=== PATIENT | male | born 1930 | race Caucasian/White ===

== ENCOUNTER 2018-06-17 22:06 | Emergency (ER) | payer OTHER, MEDICARE ==
[~2018-06-17] VITALS: Ht 175.3 cm; Wt 83.0 kg
[~2018-06-17 22:06] MED LIST: AMBEREN; ASPIRIN EC81 M1; B COMPLEX1 EAC1 PO; CIPRO500 MG PO; COQ-10100 MG PO; FISHOIL; FLAGYL500 MG PO; HYTRIN 2MG CAPSU2 M1; IBUPROFEN 200200 M1; L-ARGININE1000 MG PO; LISINOPRIL10 MG; LISINOPRIL5 MG PO; MOM PO; PRAVACHOL40 MG; PRESERVISION; PRESERVISION PO; UNICOMPLEX M TA1 TA1 PO; VITAMIN D1000 UNI1 PO
[2018-06-17] MEDS ORDERED: COZAAR 25 MG TA25 M1 PO (22:28)
[2018-06-17] MEDS ORDERED: FLOMAX0.4 MG PO (22:29)
[2018-06-17] MEDS ORDERED: MEN 50 PLUS MU1 EACH PO (22:30)
[2018-06-18 00:10] VITALS: BP 140/64
== END 2018-06-18 00:45 | disposition home or self-care (01) ==
LOC: ER 22:06
DX: R07.81 Pleurodynia (principal); I10 Essential (primary) hypertension; G47.30 Sleep apnea, unspecified; I25.10 Atherosclerotic heart disease of native coronary artery without angina pectoris; E78.5 Hyperlipidemia, unspecified; Z87.891 Personal history of nicotine dependence; Z91.041 Radiographic dye allergy status; Z88.8 Allergy status to other drugs, medicaments and biological substances; Z87.442 Personal history of urinary calculi; Z98.890 Other specified postprocedural states; Z85.828 Personal history of other malignant neoplasm of skin; Z95.5 Presence of coronary angioplasty implant and graft

== ENCOUNTER 2018-07-07 02:18 | Emergency (ER) | payer OTHER, MEDICARE ==
[~2018-07-07] VITALS: Ht 175.3 cm; Wt 82.6 kg
[~2018-07-07 02:18] MED LIST changes: +COZAAR 25 MG TA25 M1 PO; +FLOMAX0.4 MG PO; +MEN 50 PLUS MU1 EACH PO
[2018-07-07 03:04] LABS: URINE CLARITY CLEAR; URINE COLOR YELLOW; URINE GLUCOSE-RANDOM* NEGATIVE (Negative); URINE PROTEIN (DIPSTICK) NEGATIVE (Negative)
[2018-07-07 03:05] LABS: URINE BILIRUBIN NEGATIVE (Negative); URINE BLOOD NEGATIVE (Negative); URINE KETONES NEGATIVE (Negative); URINE LEUKOCYTES-REFLEX NEGATIVE (Negative); URINE NITRITE-REFLEX NEGATIVE (Negative); URINE UROBILINOGEN 0.2 E.U./dl (0.2-1.0)
[2018-07-07 03:06] LABS: ABSOLUTE NEUTROPHILS 3.4 thou/uL (1.4-8.2); BASOPHILS 0.8 % (0.0-2.0); HEMATOCRIT 42.3 % (42.0-52.0); HEMOGLOBIN 14.2 gm/dL (14.0-18.0); LYMPHOCYTES 34.4 % (24.0-44.0); MCH 30.2 pg (26.0-34.0); MCHC 33.6 g/dL (28.0-37.0); MCV 89.8 fL (80.0-100.0); MONOCYTES 7.3 % (1.0-8.0); PLATELET COUNT 169 thou/uL (150-400); POLYS 55.5 % (36.0-66.0); RBC 4.71 mil/uL (4.50-6.00); RDW 13.6 % (10.5-14.5); WBC 6.1 thou/uL (4.0-11.0)
[2018-07-07 03:16] LABS: CALCIUM 9.3 mg/dL (8.5-10.1); CREATININE 1.4 mg/dL (0.7-1.3)
[2018-07-07 03:21] LABS: ALBUMIN 3.9 g/dL (3.4-5.0); TOTAL BILIRUBIN 0.7 mg/dL (<0.1-1.0); TOTAL PROTEIN 7.1 g/dL (6.4-8.2)
[2018-07-07 07:36] VITALS: BP 126/58
--- NOTE | 2018-07-07 07:37 | EKG ---
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1930 Requested By: Nirmal Sanchez Order Number: [id number] MD: Panchito Tillman Measurements Intervals [place] Rate: 76 P: 53 UT: 177 QRS: 34 QRSD: 118 T: -22 QT: 373 QTc: 420 Interpretive Statements Sinus rhythm Nonspecific intraventricular conduction delay Nonspecific ST and T wave abnormality Compared to ECG 07/14/2010 10:35:47 Atrial premature complex(es) no longer present Electronically Signed On 07-07-2018 7:37:04 MENTAL HEALTH AIDE by Panchito Tillman [email or web address] ��������������������������������������������� <ELECTRONICALLY SIGNED> ���������������������������������������� By: Panchito Tillman MD, [facility] ��������������������������������������������� 07/07/18 0737 0235 0235 Panchito Tillman MD, FACC /EPI
== END 2018-07-07 07:38 ==
LOC: ER 02:18
PROVIDERS: Emergency Medicine
DX: N20.1 Calculus of ureter (principal); I10 Essential (primary) hypertension; G47.30 Sleep apnea, unspecified; I25.10 Atherosclerotic heart disease of native coronary artery without angina pectoris; E78.5 Hyperlipidemia, unspecified; H35.30 Unspecified macular degeneration; Z95.5 Presence of coronary angioplasty implant and graft; Z87.891 Personal history of nicotine dependence; Z91.041 Radiographic dye allergy status; Z88.8 Allergy status to other drugs, medicaments and biological substances; Z87.442 Personal history of urinary calculi; Z90.89 Acquired absence of other organs; Z85.828 Personal history of other malignant neoplasm of skin; Z90.49 Acquired absence of other specified parts of digestive tract

== ENCOUNTER → 2018-09-16 | Outpatient (CLI) | payer OTHER, MEDICARE | LOC: RAD 11:24 | DX: S62.336A Displaced fracture of neck of fifth metacarpal bone, right hand, initial encounter for closed fracture (principal); X58.XXXA Exposure to other specified factors, initial encounter; Y93.89 Activity, other specified; Y92.89 Other specified places as the place of occurrence of the external cause; Y99.8 Other external cause status ==

== ENCOUNTER → 2018-09-23 | Outpatient (CLI) | payer OTHER, MEDICARE | LOC: RAD 11:59 | DX: S62.396D Other fracture of fifth metacarpal bone, right hand, subsequent encounter for fracture with routine healing (principal); X58.XXXD Exposure to other specified factors, subsequent encounter ==

== ENCOUNTER → 2018-10-08 | Outpatient (CLI) | payer OTHER, MEDICARE | LOC: RAD 10:45 | DX: S62.336D Displaced fracture of neck of fifth metacarpal bone, right hand, subsequent encounter for fracture with routine healing (principal); L84 Corns and callosities; X58.XXXD Exposure to other specified factors, subsequent encounter ==

== ENCOUNTER → 2018-10-28 | Outpatient (CLI) | payer OTHER, MEDICARE | LOC: RAD 09:45 | DX: S62.396D Other fracture of fifth metacarpal bone, right hand, subsequent encounter for fracture with routine healing (principal); X58.XXXD Exposure to other specified factors, subsequent encounter ==

== ENCOUNTER → 2019-02-19 | Outpatient (CLI) | payer OTHER, MEDICARE | LOC: RAD 09:13 | DX: M25.551 Pain in right hip (principal); M47.816 Spondylosis without myelopathy or radiculopathy, lumbar region ==

== ENCOUNTER → 2019-07-23 | Outpatient (CLI) | payer OTHER, MEDICARE | LOC: CAT 10:33 | DX: N20.0 Calculus of kidney (principal); K57.32 Diverticulitis of large intestine without perforation or abscess without bleeding; N40.0 Benign prostatic hyperplasia without lower urinary tract symptoms; M48.56XA Collapsed vertebra, not elsewhere classified, lumbar region, initial encounter for fracture ==

== ENCOUNTER 2020-06-02 19:17 | Inpatient (IN) | payer OTHER, MEDICARE ==
[~2020-06-02] VITALS: Ht 152.4 cm; Wt 77.4 kg
[2020-06-02 19:18] VITALS: BP 167/69
[2020-06-02 19:53] LABS: ABSOLUTE NEUTROPHILS 3.3 thou/uL (1.4-8.2); BASOPHILS 0.4 % (0.0-2.0); EOSINOPHILS 2.4 % (0.0-3.0); HEMATOCRIT 34.8 % (42.0-52.0); HEMOGLOBIN 11.6 gm/dL (14.0-18.0); LYMPHOCYTES 31.2 % (24.0-44.0); MCH 29.4 pg (26.0-34.0); MCHC 33.2 g/dL (28.0-37.0); MCV 88.6 fL (80.0-100.0); MONOCYTES 8.2 % (1.0-8.0); PLATELET COUNT 130 thou/uL (150-400); POLYS 57.8 % (36.0-66.0); RBC 3.93 mil/uL (4.50-6.00); WBC 5.8 thou/uL (4.0-11.0)
[2020-06-02 19:56] LABS: URINE BILIRUBIN NEGATIVE (Negative); URINE BLOOD NEGATIVE (Negative); URINE CLARITY CLEAR; URINE COLOR YELLOW; URINE GLUCOSE-RANDOM* NEGATIVE (Negative); URINE KETONES NEGATIVE (Negative); URINE LEUKOCYTES-REFLEX NEGATIVE (Negative); URINE NITRITE-REFLEX NEGATIVE (Negative); URINE PROTEIN (DIPSTICK) 1+ (Negative); URINE SPECIFIC GRAVITY 1.015 (1.005-1.035); URINE UROBILINOGEN 0.2 E.U./dl (0.2-1.0)
[2020-06-02 19:59] LABS: ANION GAP 8 mmol/L (7-16); BUN 33 mg/dL (7-18); CALCIUM 9.4 mg/dL (8.5-10.1); CHLORIDE 104 mmol/L (98-107); CO2 28 mmol/L (21-32); CREATININE 2.7 mg/dL (0.7-1.3); GLUCOSE 142 mg/dL (74-106); POTASSIUM 4.1 mmol/L (3.5-5.1); SODIUM 140 mmol/L (136-145)
[2020-06-02 20:03] LABS: APTT 29.5 Seconds (24.5-32.8); INR 1.2; PROTIME 11.8 Seconds (9.3-11.4)
[2020-06-02 20:06] LABS: BACTERIA-REFLEX 1-9 Few /HPF (None Seen); CASTS None Seen /LPF (None Seen); CRYSTALS None Seen /LPF (None Seen); SQUAMOUS None Seen /LPF (0-3); URINE RBC None Seen /HPF (0-2); URINE WBC-REFLEX None Seen /HPF (0-5)
[2020-06-02 20:09] LABS: ALBUMIN 3.5 g/dL (3.4-5.0); SGOT 28 U/L (15-37); SGPT 27 U/L (16-63); TOTAL BILIRUBIN 0.7 mg/dL (0.2-1.0); TOTAL PROTEIN 6.5 g/dL (6.4-8.2); TROPONIN-I <0.06 ng/mL (<0.06)
[2020-06-02 21:32] VITALS: BP 167/69
[2020-06-02] MEDS ORDERED: ROSUVASTATIN CA20 MG PO (21:41)
[2020-06-02 23:15] VITALS: BP 160/63
[2020-06-03] VITALS: BP 169/69
--- NOTE | 2020-06-03 04:15 | NUR ---
PATIENT WAS RECIEVED FROM THE ER AND HE WAS ASSESSED AND ADMITTED. THIS PATIENT WALKS WITH A CANE HOWEVER TONIGHT HE FEELS UNSTABLE ON HIS FEET. VOIDS PER URINAL ABLE TO ANSWER QUESTIONS ON ADMISSION. HOURLY ROUNDS DONE,
[2020-06-03 04:22] VITALS: BP 159/65
--- NOTE | 2020-06-03 07:10 | NUR ---
PATIENT HAD AN UNEVENTFUL NIGHT. REQUESTED PAIN MED FROM NO MEDS ON HIS MAR. DID NOT COME TO THE FLOOR WITH THE PATIENT
--- NOTE | 2020-06-03 07:20 | EKG ---
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 : 1930 Requested By: Evin Stone Order Number: [id number] MD: Sim Sawant Measurements Intervals [place] Rate: 70 P: 11 DC: 173 QRS: 45 QRSD: 119 T: -29 QT: 386 QTc: 417 Interpretive Statements Sinus rhythm Nonspecific intraventricular conduction delay Low voltage, extremity leads Compared to ECG 07/07/2018 02:35:03 Low QRS voltage now present ST (T wave) deviation no longer present Electronically Signed On 06-03-2020 7:20:42 DIABETES EDUCATION COORDINATOR by Sim Sawant [email or web address] <ELECTRONICALLY SIGNED> By: Sim Sawant MD, [facility] 06/03/20719 38 38 Sim Sawant MD, FAC /EPI
[2020-06-03 08:20] VITALS: BP 130/68
[2020-06-03 08:30] VITALS: BP 137/54
--- NOTE | 2020-06-03 10:44 | 2DMMODE ---
[facility] [place] [address] 2 D/M-MODE ECHOCARDIOGRAM Name: JORGE A CAMPBELL Room #: 219-P ADM IN M.R.#: [id number] Admission: 06/02/20 Attend Phys: Alexandro Arroyo MD, FAAF Discharge: Date of : 32 Report #: [id number] THIS REPORT FOR: cc: Alexandro Arroyo MD, FAAFP, FACEP, Douglas MD FAAFP FACESim Banuelos MD [facility] ~ APPROVED REPORT Study performed: 06/03/2020 09:27:24 EXAM: Comprehensive 2D, Doppler, and color-flow Echocardiogram Patient Location: Bedside Room #: 219 Status: routine BSA: 1.86 HR: 70 bpm BP: 159/65 mmHg Rhythm: NSR Other Information Study Quality: Adequate Indications CVA/TIA CAD Hypertension/HDD Echo Enhancing Agent Indication: Rule out Shunt Agent(s) / Amount(s) Used: Agitated Saline 7 cc 2D Dimensions IVSd: 11.19 (7-11mm) LVOT Diam: 19.81 (18-24mm) LVDd: 53.56 mm PWd: 11.19 (7-11mm) LVDs: 38.06 (25-40mm) Aortic Root: 48.56 mm IVC: 14.00 mm Aortic Valve AoV Peak Jeremie.: 0.96 m/s AO Peak Gr.: 3.71 mmHg LVOT Max P.47 mmHg LVOT Max V: 0.79 m/s JANIYA Vmax: 2.[address] [facility] [employer] [place] [address] 2 D/M-MODE ECHOCARDIOGRAM Name: ADRIANJORGE A [facility] Room #: 219-P [facility] IN M.R.#: [id number] Admission: 06/02/20 Attend Phys: Alexandro Arroyo MD, Discharge: Date of : 32 Report #: [id number] Mitral Valve E/A Ratio: 0.6 MV Decel. Time: 254.07 ms MV E Max Jeremie.: 0.62 m/s MV A Jeremie.: 1.04 m/s MV PHT: 73.68 ms IVRT: 106.11 ms Pulmonary Valve PV Peak Jeremie.: 1.02 m/s PV Peak Gr.: 4.18 mmHg Tricuspid Valve TR Peak Jeremie.: 2.35 m/s TR Peak Gr.: 22.07 mmHg PA Pressure: 27.00 mmHg Left Ventricle The left ventricle is normal size. There is normal LV segmental wall motion. There is normal left ventricular wall thickness. Left ventricular systolic function is borderline. LVEF is 50%. Grade I - abnormal relaxation pattern. Right Ventricle The right ventricle is normal size. The right ventricular systolic function is normal. Atria The left atrium size is normal. Interatrial septum is intact without evidence of ASD or PFO. The right atrium size is normal. Aortic Valve The aortic valve is normal in structure. The Aortic valve is sclerotic. Mild aortic regurgitation. There is no aortic valvular stenosis. Mitral Valve The mitral valve is normal in structure. Mild mitral regurgitation. No evidence of mitral valve stenosis. Tricuspid Valve The tricuspid valve is normal in structure. There is trace to mild tricuspid regurgitation. Estimated PAP 27 mmHg. There is no pulmonary hypertension. Pulmonic Valve The pulmonary valve is normal in structure. There is no pulmonic [facility] [place] [address] 2 D/M-MODE ECHOCARDIOGRAM Name: JORGE A CAMPBELL [facility] Room #: 219-P ADM IN M.R.#: [id number] Admission: 06/02/20 Attend Phys: Alexandro Arroyo MD, Discharge: Date of : 32 Report #: [id number] valvular regurgitation. Great Vessels The aortic root is normal in size. IVC is normal in size and collapses >50% with inspiration. Pericardium There is no pericardial effusion. <Conclusion> Normal left ventricular size/wall thickness Ejection fraction of 50% Grade 1 diastolic dysfunction Normal right ventricular size/function Normal atrial size Color further per study was performed of the aortic/mitral/tricuspid/pulmonary valve Trace tricuspid valve insufficiency Pulmonary artery systolic pressure estimated 27 mmHg No pericardial effusion Aortic root measured at 4.9 cm <ELECTRONICALLY SIGNED> By: Sim Sawant MD, [facility] 06/03/20 1044 1044 1044 Sim Sawant MD, FACC /INF
[2020-06-03 12:30] VITALS: BP 175/61
--- NOTE | 2020-06-03 17:17 | NUR ---
Case opened to follow for dc planning needs. Energy Control Officer visited with pt's spouse. She indicates that the pt is normally indep with gait and adl's. No HH. He does use a cane outside the home and does some furnature walking due to vertigo. No steps unless he goes to the basement. She is with him all the time and does not anticipate he will need anything at dc. Will ask for therapy evals. Neruo/cardiac workup in progress. Cm role introduced.
--- NOTE | 2020-06-03 19:50 | NUR ---
PATIENT A&OX4, VSS, DENIES PAIN. PATIENT ON ROOM AIR. PATIENT HAS POOR APPETITE. PATIENT CAN HOLD ARMS OUT EVEN, LOADER UNLOADER STRENGTH MODERATE,SMILE SYMMETRICAL. PATIENT HAS UNSTEADY GAIT. AT BEDSIDE. NO SIGNS OF DISTRESS. WILL CONTINUE TO MONITOR.
[2020-06-03 20:18] VITALS: BP 172/81
[2020-06-04 03:43] LABS: CALCIUM 9.2 mg/dL (8.5-10.1); CREATININE 2.8 mg/dL (0.7-1.3); POTASSIUM 4.3 mmol/L (3.5-5.1)
--- NOTE | 2020-06-04 04:37 | NUR ---
Assumed pt care at 1900. Pt is alert and oriented. No sign of distress noted in pt. Denies pain. Fall precaution in place. Assessment completed and documented. Scheduled meds administered to pt. Tolerated PO intake. No acute events overnight. Elevated BP noted, physician made aware. Orders received. Continue to monitor. No further needs at this time.
[2020-06-04 04:45] VITALS: BP 105/62
[2020-06-04 08:30] VITALS: BP 161/75
[2020-06-04 09:04] LABS: % SATURATION 39 % (20-39); IRON 75 ug/dL (65-175); TIBC 192 ug/dL (250-450)
[2020-06-04 11:50] VITALS: BP 142/69
[2020-06-04 16:08] VITALS: BP 130/64
[2020-06-04 20:15] VITALS: BP 147/73
--- NOTE | 2020-06-04 21:04 | NUR ---
RECEIVED PT'S CARE AROUND 0710; PT. ON BED; ALERT; DURING AM ASSESSMENT PT. AOX4; NO C/O PAIN; AM MEDICATION GIVEN; EDUCATED ABOUT AM MEDICATIONS; ST. UNDERSTANDING; EDUCATED ABOUT NEW BP MEDICATION; ST. UNDERSTANDING; SBP ON THE 160s; PHYSICIAN AWARE; PER PHYSICIAN REQUESTED TO MONITOR URINE RESIDUAL; URINE RESIDUAL 68 ML; PER US TECH NO MUCH RESIDUAL NOTICED; PHYSICIAN NOTIFIED; NO NEW ORDERS; IV FLUIDS STARTED; PT AND SPOUSE EDUCATED ABOUT MEASUREMENT OUTPUT; ST. UNDERSTANDING; EDUCATED ABOUT FALL PRECAUTIONS; ST. UNDERSTANDING; [facility] UPDATED ABOUT PT'S HEALTH STATUS AND POC; PER [facility] PT. MIGHT HAVE BEGINNING OF DEPRESSION DUE TO COVID ISOLATION; PHYSICIAN NOTIFIED; NO NEW ORDERS; AMBULATED AROUND THE UNIT ONE TIME; ABLE TO TOLERATED WELL; STOOL SAMPLE COLLECTED; SR ON THE MONITOR; ASSESSMENT CHARGED; FOLLOWING POC; PASSED ON REPORT;
[2020-06-05 03:13] LABS: ABSOLUTE NEUTROPHILS 3.5 thou/uL (1.4-8.2); HEMOGLOBIN 11.3 gm/dL (14.0-18.0)
[2020-06-05 03:16] LABS: BASOPHILS 0.5 % (0.0-2.0); EOSINOPHILS 4.1 % (0.0-3.0); HEMATOCRIT 33.4 % (42.0-52.0); LYMPHOCYTES 29.3 % (24.0-44.0); MCH 30.1 pg (26.0-34.0); MCHC 33.9 g/dL (28.0-37.0); MCV 88.9 fL (80.0-100.0); MONOCYTES 8.5 % (1.0-8.0); PLATELET COUNT 126 thou/uL (150-400); POLYS 57.6 % (36.0-66.0); RBC 3.75 mil/uL (4.50-6.00); RDW 14.7 % (10.5-14.5); WBC 6.1 thou/uL (4.0-11.0)
[2020-06-05 03:50] LABS: ANION GAP 12 mmol/L (7-16); BUN 42 mg/dL (7-18); CALCIUM 9.3 mg/dL (8.5-10.1); CHLORIDE 104 mmol/L (98-107); CHOLESTEROL 91 mg/dL (<200); CO2 20 mmol/L (21-32); CREATININE 2.7 mg/dL (0.7-1.3); GLUCOSE 145 mg/dL (74-106); HDL CHOLESTEROL 31 mg/dL (>40); LDL CHOLESTEROL 46 mg/dL (<100); POTASSIUM 4.5 mmol/L (3.5-5.1); SODIUM 136 mmol/L (136-145); TC:HDL 2.9 Ratio (Not establshd); TRIGLYCERIDE 73 mg/dL (<150); VLDL 15 mg/dL (<40)
[2020-06-05 03:55] LABS: SERUM ASSESSMENT Clear
[2020-06-05 04:45] VITALS: BP 145/58
[2020-06-05 07:30] VITALS: BP 154/78
--- NOTE | 2020-06-05 08:20 | NUR ---
ASSESSMENTS CHARTED, MEDS CHARTED GIVEN. PATIENT RESTING IN BED DURING SHIFT. C/O NAUSEA DURING SHIFT. NO ANTINAUSEA MEDS WERE ON CHART. UNABLE TO REACH DOCTOR. PATIENTS BUN INCREASED, CREATININE 2.7 THIS MORNING. UOP THIS SHIFT WAS 1325, INPUT WAS 900. FALL PRECAUTIONS IN PLACE DURING SHIFT.
[2020-06-05 11:52] VITALS: BP 119/80
[2020-06-05 11:59] VITALS: BP 149/72
--- NOTE | 2020-06-05 12:52 | EKG ---
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 : 1930 Requested By: Panchito Tillman Order Number: [id number] MD: Panchito Tillman Measurements Intervals [place] Rate: 75 P: 8 MI: 172 QRS: 41 QRSD: 120 T: -35 QT: 383 QTc: 428 Interpretive Statements Sinus rhythm Nonspecific intraventricular conduction delay Nonspecific ST and T wave abnormality Compared to ECG 06/02/2020 19:39:58 No significant change was found Electronically Signed On 06-05-2020 12:52:06 RIVETING MACHINE OPERATOR TAPE CONTROL by Panchito Tillman [email or web address] <ELECTRONICALLY SIGNED> By: Panchito Tillman MD, [facility] 06/05/20 1252 5 5 Panchito Tillman MD, FAC /EPI
[2020-06-05 20:59] VITALS: BP 153/74
--- NOTE | 2020-06-05 21:06 | HC ---
[facility] [place] [address] CONSULTATION Name: JORGE A CAMPBELL Room #: 219-P ADM IN M.R.#: [id number] Admission: 06/02/20 Attend Phys: Alexandro Arroyo MD, FAA Discharge: Date of : 32 Report #: [id number] THIS REPORT FOR: cc: Alexandro Arroyo MD [facility] FACE Alexandro Arroyo MD FAA FACE Leif Sullivan MD ~ DATE OF SERVICE: 06/03/2020 HISTORY OF PRESENT ILLNESS: This is an 89-year-old male patient who was evaluated by me for possibility of TIA. The patient was discussed with Dr. Stone in the Emergency Room. He had an episode of altered mental status. Then, his speech was slurred and then he had some numbness in the left hand. All his symptoms resolved. He never had this kind of symptoms before. Initial plan was to do a CT angiogram of the head and neck on him, but that was canceled because his creatinine was high. He says he has a war injury and a metal in his groin and he has been told not to do an MRI and he never had one that makes the evaluation pretty difficult in this patient. REVIEW OF SYSTEMS: Indicates he said he was diagnosed with myasthenia gravis and his records does indicate that he had pretty impressive, increase in acetylcholine receptor antibodies. He was given Mestinon. He did not like Mestinon and never took Mestinon. He never had much symptoms and learn to live with it since the diagnosis in about 2001. He does have a history of kidney stones. He has a history of cancer, macular degeneration, CPAP, hypertension, bypass surgery, coronary artery disease, hyperlipidemia, diverticulosis, hearing problems. He used to take an aspirin 81 mg daily. He had an occasional bleeds from the nose and decided not to take it. A 14-point review of system was otherwise noncontributory. PAST MEDICAL HISTORY: Negative for TIA. FAMILY HISTORY: Unremarkable and negative for early age stroke. SOCIAL HISTORY: He used to smoke, but stopped smoking in the 1960s. He does not drink any alcohol on a regular basis. PHYSICAL EXAMINATION: Indicates he is alert, responsive, able to follow simple commands. He can tell me what month it is. He knows what hospital he is in. His speech to me looks intact. He also says that his speech has returned back to the baseline. Cranial nerve examination 2-12 was unremarkable. He has [facility] [address] [place] [address] CONSULTATION Name: JORGE A CAMPBELL [facility] Room #: 219-P [facility] IN .R.#: [id number] Admission: 06/02/20 Attend Phys: Alexandro Arroyo MD, FAAF Discharge: Date of : 32 Report #: [id number] symmetrical strength, sensation, reflexes and tone in all 4 extremities. There is no cerebellar sign. There is no meningeal sign. I could not look at the fundus. He is a very well-developed individual who does not have any dysmorphic features of eyes, ears and face. His vision looks adequate. He has hearing problem. He does not have any carotid bruit. There is no thyroid mass. Cardiac examinations appear unremarkable. No respiratory difficulty was noted. He does not have any vascular insufficiency. There is no edema, cyanosis or jaundice. He has no respiratory difficulty. There are no rhonchi. His CT scan looks unremarkable. Blood pressure is 159/65, respirations 18, temperature is 98.4, and pulse is 61. CT showed no acute changes. IMPRESSION: The history is consistent with transient ischemic attack. Workup is very difficult. His CT angio was canceled because his creatinine is high. He cannot have an MRI because he has a war injury with unknown metal in there. The only thing we can do is carotid Doppler, which I ordered. I will also get an echocardiogram done. He needs a lipid profile, which we will order and we will order some other blood workup. I will suggest to see take aspirin. If bleeding is a problem, we take aspirin every other day. His platelet is somewhat low and we may be restricted even in giving antiplatelet therapy for him, but I will give alternate days antiplatelet therapy. He is agreeable for that. I discussed all of them and he understands his options and pros and cons of all of his option in that regard. Thank you very much for this referral and if you have any question, please feel free to contact me. Dr. Lei will follow up this patient for this weekend. <ELECTRONICALLY SIGNED> By: Leif Sullivan MD 06/05/20 2106 0903 0937 Leif Sullivan MD /nt
--- NOTE | 2020-06-05 21:27 | NUR ---
RECEIVED PT'S CARE AROUND 0735; PT. ON BED; ALERT; DURING AM ASSESSMENT PT. AOX4; EDUCATED ABOUT AM MEDICATIONS; REMAINED ABOUT FALL PRECAUTIONS; ST. UNDERSTANDING; C/O NAUSEA DURING BREAKFAST; PRN IV MEDICATION GIVEN; EDUCATED ABOUT CALLING WHEN HAVING NAUSEA; ST. UNDERSTANDING; REASSESSMENT PT. ST. NO NAUSEA; NO C/O PAIN; WALKED AROUND THE UNIT ONE TIME AND HALF DURING THE AFTERNOON; SR ON THE MONITOR; ASSESSMENT CHARGED; FOLLOWING POC; ASSESSMENT CHARGED; FOLLOWING POC;
[2020-06-06 03:17] LABS: ABSOLUTE NEUTROPHILS 3.9 thou/uL (1.4-8.2); BASOPHILS 0.6 % (0.0-2.0); EOSINOPHILS 3.1 % (0.0-3.0); HEMATOCRIT 35.6 % (42.0-52.0); HEMOGLOBIN 11.8 gm/dL (14.0-18.0); LYMPHOCYTES 24.8 % (24.0-44.0); MCH 29.8 pg (26.0-34.0); MCHC 33.2 g/dL (28.0-37.0); MCV 89.6 fL (80.0-100.0); MONOCYTES 7.8 % (1.0-8.0); PLATELET COUNT 144 thou/uL (150-400); POLYS 63.7 % (36.0-66.0); RBC 3.98 mil/uL (4.50-6.00); RDW 14.4 % (10.5-14.5); WBC 6.2 thou/uL (4.0-11.0)
[2020-06-06 03:35] LABS: ALBUMIN 3.7 g/dL (3.4-5.0); CALCIUM 9.9 mg/dL (8.5-10.1); CREATININE 2.7 mg/dL (0.7-1.3); POTASSIUM 4.5 mmol/L (3.5-5.1); TOTAL BILIRUBIN 0.7 mg/dL (0.2-1.0); TOTAL PROTEIN 6.8 g/dL (6.4-8.2)
[2020-06-06 05:05] VITALS: BP 142/74
[2020-06-06 07:12] VITALS: BP 142/64
--- NOTE | 2020-06-06 09:00 | NUR ---
ASSESSMENTS CHARTED, MEDS CHARTED GIVEN. PATIENT RESTING IN BED DURING SHIFT. USING URINAL IN BED. RECEIVING MAINTENANCE FLUIDS DURING SHIFT. SINUS TACH DURING SHIFT. HAS BEEN NPO SINCE MIDNIGHT FOR EGD THIS MORNING. USES WALKER TO AMBULATE. C/O HEARTBURN AT START OF SHIFT, ANTACID GIVEN. IN AM, IT WAS NOTED THAT HE HAD NOT HAVE A COVID TEST YET, NEEDS TO HAVE ONE PRIOR TO PROCEDURE.
[2020-06-06 11:15] VITALS: BP 123/59
[2020-06-06 16:30] VITALS: BP 144/87
--- NOTE | 2020-06-06 20:05 | NUR ---
ASSUMED CARE PT SHIFT CHANGE. ASSESSMENTS CHARTED.MEDS GIVEN PER JUL. PT SPOUSE REPORTS SIGNINFICANT CONFUSION SIMILAR TO ADMISSION. PT ORIENTED 1-2 AND CONFUSED UPON ASSESSMENTS. PHYSICIAN NOTIFIED. ORDERS RECEIVED. NEURO CONSULT, CT HEAD AND EEG ORDERED-REFER TO RESULTS. PT IMPULSIVE GETTING OUT OF BED WITHOUT HELP. FALL PRECAUTIONS REMAIN IN PLACE. FREQ CHECKS ON PT. COVID RESULTED NEG. PLAN FOR EGD IN AM. DENIES NEEDS. REPORT PASSED ON NOC RN.
[2020-06-06 20:30] VITALS: BP 156/84
--- NOTE | 2020-06-07 03:23 | NUR ---
PATIENT ALERT TO SELF.CONFUSED.TRYING TO GET OUT OF BED AND KICKING STAFF WHEN CLEANED.LORAZEPAM GIVEN.NPO SINCE MIDNIGHT FOR POSSIBLE EGD TODAY MONITOR SHOWS SR.POC CONTINUED.
[2020-06-07 04:45] VITALS: BP 161/83
[2020-06-07 09:00] VITALS: BP 138/66
[2020-06-07 09:52] LABS: CALCIUM 9.4 mg/dL (8.5-10.1); CREATININE 2.7 mg/dL (0.7-1.3); POTASSIUM 4.2 mmol/L (3.5-5.1)
[2020-06-07 12:30] VITALS: BP 132/63
[2020-06-07 15:30] VITALS: BP 139/68
--- NOTE | 2020-06-07 17:18 | NUR ---
Therapy evals in process. 5N evaled. Pending therapy possibly rehab vs home with Home Health care. Attempted to call no answer.
--- NOTE | 2020-06-07 17:45 | NUR ---
PT SLEEPING MOST OF DAY,EASILY AROUSED, VSS, NO APPARENT PAIN. AT BEDSIDE. EGD CANCELLED D/T PATIENT BEING LETHARGIC FROM OVERNIGHT DOSE OF ATIVAN. DOCTOR JELLY ORDERED NEW MEDICATION TO REVERSE EFFECTS, FLUMAZENIL. ASSESSMENT COMPLETED, MEDS GIVEN ORDERED. NO SIGNS OF DISTRESS WITNESS. WILL CONTINUE TO MONITOR.
[2020-06-07 20:45] VITALS: BP 144/64
--- NOTE | 2020-06-08 04:28 | NUR ---
CARE ASSUMED 1900. PT ALERT TO SELF. CONFUSED, AND MIXED UP ON TIME. PT SEEM LETHERGIC AND PERIODICALLY INCONTINENT. VITALS STABLE NO FEVER, PT GRIMACES IN PAIN WHEN TURNING. SR ON THE MONITOR, NO CHEST DISCOMFORT REPORTED. ASSESSMENTS DOCUMENTED. WILL CONTINUE TO MONITOR AND FOLLOW POC.
[2020-06-08 04:45] VITALS: BP 147/72
[2020-06-08 07:59] VITALS: BP 145/63
--- NOTE | 2020-06-08 11:31 | HC ---
[facility] [place] [address] CONSULTATION Name: JORGE A CAMPBELL Room #: 219-P ADM IN M.R.#: [id number] Admission: 06/02/20 Attend Phys: Alexandro Arroyo MD, FAA Discharge: Date of : 32 Report #: [id number] THIS REPORT FOR: cc: Alexandro Arroyo MD FAA FACE Alexandro Arroyo MD FAA FACE Diomedes Ledesma MD ~ DATE OF SERVICE: 06/05/2020 HISTORY OF PRESENT ILLNESS: The patient is an 89-year-old male who had mental status changes and was admitted yesterday for further evaluation. A CT scan of his head was performed showing no acute intracranial abnormalities. He is feeling better today. His is in the room. Apparently, he was reporting changes in his speech as well as numbness in his hands. This is now resolved. Neurology is following. Reason for GI consultation is intermittent nausea, rare vomiting, but nausea occurs approximately several times per week and this has been ongoing for approximately a year. He also has intermittent dysphagia, not to the point of regurgitation. Last upper endoscopy, if performed, was many years ago per the patient and his . He denies any significant heartburn symptoms, although he does take Gaviscon on a p.r.n. basis. Apparently, he has had some mild weight loss. Denies any abdominal pain at this time. He was taking aspirin on a daily basis, later this was stopped for epistaxis and then was taking it approximately every 3 days. He does complain of some constipation in general and takes 2 stool softeners on a daily basis, which improves his symptoms. He states his last colonoscopy was greater than 10 years ago. There is no family history of colon cancer. He denies any blood in his stools. An ultrasound of the abdomen was performed yesterday, which showed probable nonobstructing intrarenal calculi bilaterally. There is a parapelvic cyst noted, splenomegaly noted, prostate gland enlargement, otherwise normal. Liver was normal as well and gallbladder is absent. No evidence of ductal dilation. The patient has been started on Zofran p.r.n. as well as Pepcid. He underwent carotid Dopplers which showed mild bilateral atherosclerotic plaquing without hemodynamically significant stenosis. PAST MEDICAL HISTORY: History of coronary artery disease status post CABG in 2003, history of hypertension, hyperlipidemia, urinary retention, chronic back pain, myasthenia gravis. REVIEW OF SYSTEMS: As per HPI. ALLERGIES: CONTRAST DYE AND DEMEROL. SOCIAL HISTORY: Denies any tobacco use for many years. Denies any alcohol use. FAMILY HISTORY: Negative for colon cancer. [facility] [address] [place] [address] CONSULTATION Name: JORGE A CAMPBELL [facility] Room #: 219-P [facility] IN M.R.#: [id number] Admission: 06/02/20 Attend Phys: Alexandro Arroyo MD, FAAF Discharge: Date of : 32 Report #: [id number] PHYSICAL EXAMINATION: VITAL SIGNS: Temperature is 36.7, pulse 75, blood pressure 149/72, respiratory rate is 16. GENERAL: He is alert and oriented x 3, in no acute distress. HEENT: Sclerae nonicteric. Oropharynx clear. NECK: Supple, without lymphadenopathy. CARDIOVASCULAR: Regular rate and rhythm. CHEST: Clear to auscultation bilaterally. ABDOMEN: Soft, nontender, nondistended, normoactive bowel sounds. EXTREMITIES: No cyanosis, clubbing or edema. LABORATORY DATA: WBC 6.1, hemoglobin 11.3, platelet count 126. INR 1.2. Sodium 136, potassium 4.5, chloride 104, bicarbonate 20, BUN 42, creatinine 2.7, glucose 145, calcium 9.3. Iron 75, TIBC 192, percent sat 39, total bili 0.7, AST 28, ALT is 27. Troponin less than 0.06, alkaline phosphatase 73. BNP 34, albumin 3.5. Cholesterol 91. TSH 3.675, lipase 154, amylase 58. ASSESSMENT AND PLAN: Intermittent nausea and vomiting ongoing for approximately a year as well as dysphagia. I would recommend proceeding with an upper endoscopy tomorrow for further evaluation. At that time, we will rule out esophagitis and gastritis. We will also plan on esophageal dilation. The patient understands and agrees with this plan. We will plan for n.p.o. after midnight and EGD in the morning. In the meantime, agree with Laith and Mariella on a p.r.n. basis. We will make further recommendations after endoscopy. Thank you for allowing me to participate in his care. <ELECTRONICALLY SIGNED> By: Diomedes Ledesma MD 06/08/20 1131 1345 1743 Diomedes Ledesma MD /nt
[2020-06-08 11:52] VITALS: BP 130/52
[2020-06-08 15:14] VITALS: BP 134/66
--- NOTE | 2020-06-08 17:15 | NUR ---
rajni roque. Met with in room. Discussed skilled as option if not accepted to [facility]. handed skilled list back to casemgt and reports. Patient/ 62 years. She is not agreeable to send him to a facility where she cannot assist him. She strongly prefers [facility]. Patient to have EGD.
--- NOTE | 2020-06-08 18:53 | NUR ---
PT IS ALERT AND ORIENTED TO PERSON. AT THE BEDISDE THROUGHOUT THE DAY. DR REAVES CONSULTED. PT HAS URINAL AT BEDSIDE, BUT HAS BEEN INCONTINENT. PT/OT CONSULTED. PT UP IN CHAIR FOR MOST OF DAY, STDBY ASSIST WITH GAIT BELT. POC IS TO PREPARE PT FOR THERAPY. FALL PRECAUTIONS IN PLACE. CONTINUE TO MONITOR ORIENTATION, PT IS EASILY CONFUSED, AND FORGETS LIMITS.
[2020-06-08 19:42] VITALS: BP 148/87
[2020-06-09 04:55] VITALS: BP 139/55
--- NOTE | 2020-06-09 06:00 | NUR ---
Assumed pt care at 2300. Alert and oriented with forgertfulness noted. Denies pain on assessment. VSS.SR on telemetry. Voiding per urinal at NOC w/o any problems voiced. IVF infusing via RUE. Fall precautions in place,resting w/o any distress noted. Will continue to monitor pt.
[2020-06-09 07:47] VITALS: BP 147/75
--- NOTE | 2020-06-09 11:03 | NUR ---
PLAN FOR EGD TOMORRROW THEN TRANSFER TO 5n. AWARE OF PLAN.
--- NOTE | 2020-06-09 14:34 | NUR ---
PT A&OX4, VSS, DENIES PAIN. PATIENT UP TO RECLINER, WORKED WITH PT. PATIENT ON ROOM AIR, NO COUGHING NOTICED TODAY. PATIENT IS TIRED MOST OF THE DAY AND SLEEPING ON AND OFF. AT BEDSIDE. ASSESSMENT COMPLETED AND MEDS GIVEN ORDERED. NO SIGNS OF DISTRESS. WILL CONTINUE TO MONITOR.
[2020-06-09 19:50] VITALS: BP 148/69
[2020-06-10 03:45] VITALS: BP 163/77
--- NOTE | 2020-06-10 05:07 | NUR ---
ASSUMED PATIENT CARE AT 1845. VITAL SIGNS STABLE WITH PATIENT HAVING NO COMPLAINTS OF PAIN OR NAUSEA. UPON INITIALLY MEETING PATIENT HE WAS ALERT TO SELF, CONFUSED, AND AGITATED BECAUSE "ALL OF YOU DAMN PEOPLE ARE IN MY HOUSE". CALL PLACED TO FAMILY TO HELP CALM PATIENT WITH PATIENT MOVED TO ROOM 204 TO BE CLOSER TO NURSES STATION. FREQUENTLY INCONTINENT OF BLADDER, PATIENT BECOMES IMPULSIVE AT TIMES. PATIENT NPO FROM MIDNIGHT ON IN ANTICIPATION OF TODAYS PROCEDURE. CONTINUE PLAN OF CARE.
[2020-06-10 05:59] LABS: HEMATOCRIT 32.4 % (42.0-52.0); HEMOGLOBIN 11.1 gm/dL (14.0-18.0); MCH 29.7 pg (26.0-34.0); MCHC 34.1 g/dL (28.0-37.0); MCV 87.2 fL (80.0-100.0); RBC 3.72 mil/uL (4.50-6.00); RDW 14.6 % (10.5-14.5); WBC 4.6 thou/uL (4.0-11.0)
[2020-06-10 06:17] LABS: CALCIUM 8.8 mg/dL (8.5-10.1); CREATININE 2.5 mg/dL (0.7-1.3); POTASSIUM 3.8 mmol/L (3.5-5.1)
[2020-06-10 07:15] VITALS: BP 115/61
[2020-06-10 09:25] VITALS: BP 149/76
[2020-06-10 11:40] VITALS: BP 154/65
[2020-06-10 15:36] VITALS: BP 148/65
[2020-06-10 16:19] LABS: URINE BILIRUBIN NEGATIVE (Negative); URINE BLOOD 1+ (Negative); URINE CLARITY CLEAR; URINE COLOR YELLOW; URINE GLUCOSE-RANDOM* NEGATIVE (Negative); URINE KETONES 1+ (Negative); URINE LEUKOCYTES NEGATIVE (Negative); URINE NITRITE NEGATIVE (Negative); URINE PROTEIN (DIPSTICK) 1+ (Negative); URINE SPECIFIC GRAVITY 1.025 (1.005-1.035); URINE UROBILINOGEN 0.2 E.U./dl (0.2-1.0)
[2020-06-10 16:32] LABS: SQUAMOUS 0-3 Few /LPF (0-3)
[2020-06-10 16:33] LABS: BACTERIA 1-9 Few /HPF (None Seen); CASTS None Seen /LPF (None Seen); CRYSTALS None Seen /LPF (None Seen); URINE RBC 0-2 Rare /HPF (0-2); URINE WBC 0-5 Rare /HPF (0-5)
--- NOTE | 2020-06-10 17:08 | NUR ---
Dc to [facility] acute rehab on hold due to mental status changes. Pt is aggitated and extremely confused overnight and today. indicates that this is new and he may have some early dementia but had not had episodes of sun downing before. Blaire consult in progress. [facility] to reassess in 1-2 days.
--- NOTE | 2020-06-10 17:38 | NUR ---
ASSUMED CARE OF PT AT SHIFT CHANGE, WHEN PT WAS OFF UNIT FOR EGD. PT RETURNED TO UNIT VERY SLEEPY, BECAME AGITATED AND COMBATIVE. DRS NOTIFIED. NO PSYCHOTROPIC MEDS GIVEN D/T ADVERSE REACTIONS. FLUIDS STARTED, PT SETTLED WITH WIFES HELP. SLEPT MOST OF AFTERNOON. UPON WAKING AROUND 1500, PT MUCH MORE APPROPRIATE AND PLEASANT. AT BEDSIDE UNTIL ABOUT 1700. PT SLEEPING AGAIN. POSSIBLE DC TO 5N TOMORROW. WILL CONTINUE TO MONITOR AND FOLLOW POC.
[2020-06-10 19:30] VITALS: BP 166/78
[2020-06-11] VITALS (8 sets, daily range): BP systolic 143–177; BP diastolic 72–92
--- NOTE | 2020-06-11 04:53 | NUR ---
Assumed pt care at the change of shift, pt is asleep at the [facility], upon waking up pt became agitated and impulsive, family called; pt able to calm down, agitated with cares, periodic incontinence, , slept most of the night, meds given as per jul, no acute distress noted, will pass on report
--- NOTE | 2020-06-11 18:49 | NUR ---
PT CARE ASSUMED AT 0700. ASSESSMENTS CHARTED. MEDICATIONS CHARTED. LFA IV. SINUS TACHYCARDIA. OCCASSIONAL INCONTINENCE, BRIEFS. USES URINAL. PILLS IN APPLESAUCE, OCCASSIONALLY REFUSES. PT D/C'D AVANI IV. HOME CPAP AT BEDSIDE.
[2020-06-12] VITALS (8 sets, daily range): BP systolic 148–167; BP diastolic 67–86
--- NOTE | 2020-06-12 05:16 | NUR ---
assumed pt care at nage of shift, pt is sleepy, awake during assessments, pt oriented to person, combative with cares, refused po pills but was ble to take cough syrup,attempted to gave pudding and apple sauce pt pt remained combative, pt noted to have a non- productive cough that improved after given cough syrup, pt was able to go to sleep, after, no behaviours noted, pt is calm, used home cpap, sr on the monitor, assessments as charted, fluids infusing as per order, no acute distress noted, will continue to monitor, will follow poc
[2020-06-12 13:37] LABS: BE(vivo) -3.8 mmol/L (-2 to +3); HCO3 20.3 mmol/L (22.0-26.0); PCO2 33.3 mmHg (35.0-45.0); PO2 68.2 mmHg (80.0-100.0); pH 7.402 (7.360-7.450); sO2 93.9 % (92.0-98.0)
[2020-06-12 15:34] LABS: HEMATOCRIT 32.9 % (42.0-52.0); HEMOGLOBIN 10.9 gm/dL (14.0-18.0); MCH 29.3 pg (26.0-34.0); MCHC 33.1 g/dL (28.0-37.0); MCV 88.6 fL (80.0-100.0); RBC 3.71 mil/uL (4.50-6.00); RDW 14.8 % (10.5-14.5); WBC 5.5 thou/uL (4.0-11.0)
[2020-06-12 15:38] LABS: CALCIUM 8.9 mg/dL (8.5-10.1); CREATININE 2.6 mg/dL (0.7-1.3); POTASSIUM 4.3 mmol/L (3.5-5.1)
--- NOTE | 2020-06-12 19:49 | NUR ---
PT CARE ASSUMED AT 0700. ASSESSMENTS CHARTED. MEDICATIONS CHARTED. LFA IV. URINAL, BRIEF. SINUS RHYTHM. CONFUSED, BUT BETTER IN THE AM. AGITATED IN THE EVENING. COUGH SYRUP GIVEN, DOESN'T SEEM TO HAVE MUCH EFFECT.
[2020-06-13 04:34] VITALS: BP 169/87
[2020-06-13 07:30] VITALS: BP 184/82
--- NOTE | 2020-06-13 09:00 | NUR ---
PATIENT VERY AGITATED,TRYING TO GET OUT OF BED,TAKING OFF HIS O2,CALLED FOR MEDS BUT PT REFUSED TYLENOL,PLACED ON BILATERAL SOFT WRIST ORDERED.FAMILY MEMBER WAS CALLED AND AWARE.POC CONTINUED.
[2020-06-13 11:20] LABS: BE(vivo) -5.8 mmol/L (-2 to +3); PCO2 46.3 mmHg (35.0-45.0); sO2 86.4 % (92.0-98.0)
[2020-06-13 11:21] LABS: pH 7.274 (7.360-7.450)
[2020-06-13 11:55] VITALS: BP 184/82
--- NOTE | 2020-06-13 11:58 | NUR ---
Visited with pt's at beside as she is requesting hospice eval and goal to have the pt pass at home today. She notes her gdtr is an CRYSTALLOGRAPHER and has contacted [facility] liason Kristine to assist. Ingot Stripper spoke with the care team and Kristine. Dc assortment planner faxing the referral and bedside eval requested due to rapidly changing respiratory status. Emotional support provided. has signed the [facility] DNR form and it is ready for phsyician signature. Pt's spouse requesting DNR status. Message left for the attending by cm and the unit RN. The attending has call back the unit RN and DNR now in place along with order for hospice eval and admit. Awaiting bedside eval to determine if pt stable for dc to home with hospice today. They will need dme delievered and [facility] arranged if all parties agreeable. Case discussed with the care team. Will follow.
[2020-06-13] MEDS ORDERED: ALBUTEROL2.5 MG/0.5 INH (12:35)
[2020-06-13] MEDS ORDERED: PHENERGAN 25 MG25 M1 PO (12:35)
[2020-06-13] MEDS ORDERED: ADULT LOW DOSE81 MG PO (12:35)
[2020-06-13] MEDS ORDERED: AMLODIPINE BESY10 MG PO (12:35)
[2020-06-13] MEDS ORDERED: IPRAT-ALBUT 0.5-3 ML INH (12:35)
[2020-06-13] MEDS ORDERED: ACETAMINOPHEN325 M1 PO (12:35)
[2020-06-13] MEDS ORDERED: METOPROLOL SUCC50 MG PO (12:35)
[2020-06-13 12:37] VITALS: BP 143/81
--- NOTE | 2020-06-13 13:18 | NUR ---
FAXED REFERRAL TO [facility] SPOKE WITH SONALI IN INTAKE SHE RECEIVED REFERRAL AND NURSE TREASURE WILL DO BEDSIDE EVAL AT 12O0. DOCUMENT IMAGING SPECIALIST TREASURE CAN ACCEPT PT FOR HOSPICE AT HOME AND WILL NOTIFY ME OF TIME PT TO DC TO HOME ONCE ALL EQUIPMENT DELIVERED.
[2020-06-13 13:22] VITALS: BP 184/82
[2020-06-13 15:34] VITALS: BP 149/86
--- NOTE | 2020-06-13 16:59 | NUR ---
[facility] hospice met with patient and at bedside. They request 4:30 [facility] to home. They have delivered equiptment to home. [facility] reports they can transport at 1830. They then arrived earlier. Updated hospice of dc and timeframe. at bedside and agreeable to plan. Outside DNR signed.
--- NOTE | 2020-06-13 17:24 | NUR ---
DISCHARGED TO HOME WITH HOSPICE.
--- NOTE | 2020-06-15 12:30 | EEG ---
[facility] [address] [place] [address] ELECTROENCEPHALOGRAM Name: JORGE A CAMPBELL Room #: 204-P [facility] IN M.R.#: [id number] Admission: 06/02/20 Attend Phys: Alexandro Arroyo MD, FAA Discharge: 06/13/20 Date of : 34 Report #: [id number] THIS REPORT FOR: //name// DATE OF SERVICE: 06/06/2020 This patient is being evaluated for episode of confusion. EEG was done by placing the electrode by standard 10-20 system of electrode placement. Both referential and sequential montages were used for recording. Background activity is difficult to determine, as it is intermixed with a lot of artifact. It does appear to be somewhat slow. Background activity is about 7-8 Hz and 30 microvolt. The patient went to sleep that is associated with bilateral slowing and vertex sharp waves. Throughout the record, no active epileptiform activity was noticed. IMPRESSION: This patient's EEG demonstrates lot of artifact and it is intermixed with theta range slowing on both sides. That is a nonspecific abnormality, which can occur with dementia, encephalopathy, effect of psychotropic medication, etc. Clinical correlation is recommended. <ELECTRONICALLY SIGNED> By: Leif Sullivan MD 06/15/20 1230 [id number] Leif Sullivan MD /nt
--- NOTE | 2020-06-15 12:30 | EEG ---
[facility] [place] [address] ELECTROENCEPHALOGRAM Name: JORGE A CAMPBELL Room #: 204-P [facility] IN M.R.#: [id number] Admission: 06/02/20 Attend Phys: Alexandro Arroyo MD, [facility] Discharge: 06/13/20 Date of : 32 Report #: [id number] THIS REPORT FOR: //name// DATE OF SERVICE: 06/10/2020 This patient is being evaluated for altered mental status. EEG was done by placing the electrode by standard 10-20 system of electrode placement. Both referential and sequential montages were used for recording. Background activity appeared to be about 6 Hz and 30 microvolt. It is slow activity. Photic stimulation is unremarkable. Throughout the record, no active epileptiform activity was noticed. IMPRESSION: This patient's EEG is intermixed with theta range slowing on both sides. That is a nonspecific finding, which can occur with encephalopathy, effect of psychotropic medication, dementia, etc. Thank you very much for this referral. <ELECTRONICALLY SIGNED> By: Leif Sullivan MD 06/15/20 1230 47 51 Leif Sullivan MD /nt
--- NOTE | 2020-06-15 12:30 | EEG ---
[facility] [place] [address] ELECTROENCEPHALOGRAM Name: JORGE A CAMPBELL Room #: 204-P [facility] IN M.R.#: [id number] Admission: 06/02/20 Attend Phys: Alexandro Arroyo MD, [facility] Discharge: 06/13/20 Date of : 34 Report #: [id number] THIS REPORT FOR: //name// DATE OF SERVICE: 06/07/2020 This patient is being evaluated for the possibility of altered mental status. EEG was done by placing the electrode by standard 10-20 system of electrode placement. Both referential and sequential montages were used. Background activity does appear to be about 7-8 Hz and 30 microvolt. Photic stimulation is unremarkable. The patient became drowsy that is associated with bilateral slowing. IMPRESSION: EEG still demonstrates a theta range slowing on both sides. That is a nonspecific abnormality, which can occur with encephalopathy, effect of psychotropic medication, dementia, etc. it can also be postictal. Clinical correlation is recommended. <ELECTRONICALLY SIGNED> By: Leif Sullivan MD 06/15/20 1230 [id number] [id number] Leif Sullivan MD /nt
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
== END 2020-06-13 17:00 | disposition hospice, home (50) | DRG 69 ==
LOC: ER 19:17 → 2N 20:36 → EROBS 20:36 → 2N 23:07
PROVIDERS: Anesthesiology; Emergency Medicine; Internal Medicine; Internal Medicine Pulmonary Disease; Nurse Practitioner Adult Health; Psychiatry & Neurology Neuromuscular Medicine; Psychiatry & Neurology Psychiatry; ADMIT Family Medicine; ATTEND Family Medicine
PROC: 0DB68ZX Excision of Stomach, Via Natural or Artificial Opening Endoscopic, Diagnostic (ICD-10-PCS; principal; 2020-06-10)
PROC: 0D738ZZ Dilation of Lower Esophagus, Via Natural or Artificial Opening Endoscopic (ICD-10-PCS; principal; 2020-06-10)
PROC: 5A09357 Assistance with Respiratory Ventilation, Less than 24 Consecutive Hours, Continuous Positive Airway Pressure (ICD-10-PCS; 2020-06-11)
DX: G45.9 Transient cerebral ischemic attack, unspecified (principal); J96.01 Acute respiratory failure with hypoxia; J18.9 Pneumonia, unspecified organism; J96.02 Acute respiratory failure with hypercapnia; N17.9 Acute kidney failure, unspecified; R47.01 Aphasia; N18.4 Chronic kidney disease, stage 4 (severe); G40.89 Other seizures; I25.10 Atherosclerotic heart disease of native coronary artery without angina pectoris; Z20.822 Contact with and (suspected) exposure to COVID-19; E78.5 Hyperlipidemia, unspecified; E86.0 Dehydration; K57.90 Diverticulosis of intestine, part unspecified, without perforation or abscess without bleeding; G89.29 Other chronic pain; M54.9 Dorsalgia, unspecified; R13.10 Dysphagia, unspecified; R47.1 Dysarthria and anarthria; H35.30 Unspecified macular degeneration; R68.81 Early satiety; G70.00 Myasthenia gravis without (acute) exacerbation; R63.4 Abnormal weight loss; I12.9 Hypertensive chronic kidney disease with stage 1 through stage 4 chronic kidney disease, or unspecified chronic kidney disease; N40.0 Benign prostatic hyperplasia without lower urinary tract symptoms; D69.6 Thrombocytopenia, unspecified; K44.9 Diaphragmatic hernia without obstruction or gangrene; K29.70 Gastritis, unspecified, without bleeding; G47.33 Obstructive sleep apnea (adult) (pediatric); Z66 Do not resuscitate; K22.2 Esophageal obstruction; K20.0 Eosinophilic esophagitis; Z87.442 Personal history of urinary calculi; Z85.828 Personal history of other malignant neoplasm of skin; Z90.49 Acquired absence of other specified parts of digestive tract; Z95.1 Presence of aortocoronary bypass graft; Z97.4 Presence of external hearing-aid; Z79.899 Other long term (current) drug therapy; Z79.82 Long term (current) use of aspirin; Z91.041 Radiographic dye allergy status; Z68.33 Body mass index [BMI] 33.0-33.9, adult; Z82.49 Family history of ischemic heart disease and other diseases of the circulatory system
CPT/HCPCS: 10081; 62110; 62900